=== PATIENT | male | born 2000 ===

== ENCOUNTER 2018-03-25 18:55 | Emergency (ER) | payer BC ==
[2018-03-25 19:13] VITALS: BP 112/79
--- NOTE | 2018-03-25 19:32 | RAD ---
HISTORY: Left wrist injury COMPARISONS: None VIEWS: 3, Frontal, lateral, and oblique views of the left wrist FINDINGS: BONE DENSITY: Normal. BONES: There is no displaced fracture. The patient is skeletally immature. JOINTS: There is no arthropathy. ALIGNMENT: There is no dislocation. SOFT TISSUES: Unremarkable. OTHER FINDINGS: None. IMPRESSION: NO ACUTE OSSEOUS INJURY. IF SYMPTOMS PERSIST, RECOMMEND REPEAT IMAGING.
--- NOTE | 2018-03-25 19:58 | UC ---
Hand/Wrist HPI - HPI Summary HPI Summary: Patient presents with complaint of pain in his left wrist. Patient was playing basketball on 03/24/18 when he fell hyperextending his wrist. Patient states he persisted to have pain with extension flexion. No analgesic taken. Ice was applied once. Patient denies any elbow or shoulder pain. He is with a previous ORIF of his left wrist several years ago. No other injuries related to the fall. Did not strike his head. No neck or back pain. No other complaints. - History Of Current Complaint Chief Complaint: UCUpperExtremity Stated Complaint: LEFT WRIST INJURY Time Seen by Provider: 03/25/18 19:42 Hx Obtained From: Patient Onset/Duration: Sudden Onset Pain Intensity: 6 - Allergies/Home Medications Allergies/Adverse Reactions: Allergies Allergy/AdvReac Type Severity Reaction Status Date / Time No Known Allergies Allergy Verified 03/25/18 19:13 Home Medications: Home Medications NK [No Home Medications Reported] 03/25/18 [History Confirmed 03/25/18] PMH/Surg Hx/FS Hx/Imm Hx Previously Healthy: Yes - Surgical History Surgical History: Yes Surgery Procedure, Year, and Place: LEFT WRIST ORIF - Family History Known Family History: Positive: None - Social History Occupation: Employed Full-time Lives: With Family Alcohol Use: Occasionally Substance Use Type: Marijuana Smoking Status (MU): Current Some Day Smoker Review of Systems Constitutional: Negative Musculoskeletal: Other: - left wrist All Other Systems Reviewed And Are Negative: Yes Physical Exam - Summary Physical Exam Summary: Vital Signs Reviewed: Yes A+Ox3, no distress Eyes: Conjunctiva Clear, YARED. EOM intact and full ENT: Hearing grossly normal TM x 2 clear, mmoist, uvula midline, no exudate, no erythema Neck: Positive: Supple Respiratory: Positive: No respiratory distress, No accessory muscle use + CTA throughout no w/r Cardiovascular: RRR nl s1, s2 no m/r CBT <2 sec abd soft + BS nt/nd no guarding, no distension Musculoskeletal Exam: HENLEY x 4 without difficulty Strength Intact, ROM Intact + thumb up, a ok, finger cross No pain snuffbox + flex/ext elbow + pronate/supinate discomfort lateral aspect of wrist with direct palp - no crepitus Neurological: Positive: Alert, + sensation throughout Psychological: Positive: Normal Response To Family Skin: Positive: no rash, no ecchymosis Triage Information Reviewed: Yes Vital Signs: Initial Vital Signs Temp 98.9 F 03/25/18 19:09 Pulse 69 03/25/18 19:09 Resp 16 03/25/18 19:09 BP 112/79 03/25/18 19:09 Pulse Ox 100 03/25/18 19:09 Diagnostics - Radiology No standard instances Radiology Interpretation Completed By: Radiologist - Patient Name: JOAO VEGA Medical Record#: [id number] Ordering Physician: Roslyn Arechiga MD Acct.#: [id number] : 2000 Age: 17 Sex: M Location: [facility] Exam Date: 03/25/181900 ADM Status: REG ER Order Information: WRIST LEFT 3+ VWS Accession Number: [id number] CPT: 37455 HISTORY: Left wrist injury COMPARISONS: None VIEWS: 3, Frontal, lateral, and oblique views of the left wrist FINDINGS: BONE DENSITY: Normal. BONES: There is no displaced fracture. The patient is skeletally immature. JOINTS: There is no arthropathy. ALIGNMENT: There is no dislocation. SOFT TISSUES: Unremarkable. OTHER FINDINGS: None. IMPRESSION : NO ACUTE OSSEOUS INJURY. IF SYMPTOMS PERSIST, RECOMMEND REPEAT IMAGING. ____ <Electronically signed by Dean Arroyo MD in [place]> 03/25/181928 Dictated By: eDan Arroyo MD Dictated Date/Time: 03/25/181928 Transcribed Date/Time: 03/25/181927 Copy to: CC:[facility]; Roslyn Arechiga MD; No Primary Care Phys ,NOPCP Imaging - [facility] [place] [facility] - [facility] [address] [address] ph [phone]) ph ([phone]) ph ([phone]) 1 of 1 Hand/Wrist Course/Dx - Course Course Of Treatment: left wrist pain s/p fall. Pain lateral aspect of wrists. diistal CSM intact. imaging neg. wrist splint. ice. motrin/apap. ortho f/u - Differential Dx/Diagnosis Provider Diagnoses: left wrist sprain Discharge - Sign-Out/Discharge Documenting (check all that apply): Discharge/Admit/Transfer - Discharge Plan Condition: Stable Disposition: HOME Patient Education Materials: Wrist Sprain (ED) Forms: *Gen. Provider Communication Referrals: [facility] [Provider Group] Lenard Montez MD [Medical Doctor] - No Primary Care Phys,NOPCP [Primary Care Provider] - Additional Instructions: -wear splint for comfort and support -apply ice (20 min at a time) every 2-3 hours for the next 2 days -Elevate your arm - this will help with swelling and pain - Alternate ibuprofen (advil, Motrin) 600mg and tylenol every 3 hours for pain. Take with food. Do NOT take for more than 4-5 days -Contact your the sports medicine office to schedule a follow-up appointment. Contact the sport medicine office, return here or go to the emergency department with questions or concerns - Billing Disposition and Condition Condition: STABLE Disposition: HOME
== END 2018-03-25 20:20 | disposition home or self-care (01) ==
LOC: UCEAST 18:55
DX: S63.502A Unspecified sprain of left wrist, initial encounter (principal); W18.30XA Fall on same level, unspecified, initial encounter; Y93.67 Activity, basketball; Y92.39 Other specified sports and athletic area as the place of occurrence of the external cause; Z72.0 Tobacco use
CPT/HCPCS: 99202; G0463